=== PATIENT | male | born 1955 | race Two or more races ===

== ENCOUNTER 2019-06-21 17:46 | Emergency (ER) | payer MEDICAID ==
[~2019-06-21] VITALS: Ht 157.5 cm; Wt 64.9 kg
[2019-06-21 18:37] LABS: Urine Bacteria FEW /hpf (None Seen); Urine Blood 2+ /uL (Negative); Urine Specific Gravity 1.028 (1.001-1.035); Urine WBC 1050 /hpf (0 - 3); Urine WBC Clumps PRESENT /hpf (None Seen)
[2019-06-21 20:19] VITALS: BP 140/75
[2019-06-21] MEDS ORDERED: ACETAMINOPHEN/CODEINE#3 (300/30mg) TAB PO ONE (20:30)
[2019-06-21] MEDS ORDERED: PHENAZOPYRIDINE HCL 100 MG TAB PO ONE (20:30)
[2019-06-21] MEDS ORDERED: cefTRIAXone SOD 1,000 MG VL IM ONE (20:30)
== END 2019-06-21 20:55 | disposition home or self-care (01) ==
LOC: ER 17:46
DX: N39.0 Urinary tract infection, site not specified (principal); E11.9 Type 2 diabetes mellitus without complications
CPT/HCPCS: 81001; 96372; 99283; J0696

== ENCOUNTER 2020-04-15 17:48 | Inpatient (IN) | payer MEDICAID ==
[~2020-04-15] VITALS: Ht 165.1 cm; Wt 63.8 kg
[2020-04-15 19:22] LABS: Eosinophils # (auto) 0.1 10 ^3/uL (0-0.8); Lymphocytes # (auto) 1.2 10 ^3/uL (0.4-5.4); Monocytes # (auto) 0.3 10 ^3/uL (0-1.3); Nucleated Red Blood Cells % 0.2 %
[2020-04-15 19:24] LABS: Basophils # (auto) 0.1 10 ^3/uL (0-0.2); Basophils % (auto) 1.1 % (0.0-2.0); Hematocrit 50.7 % (41.0-53.0); Hemoglobin 17.4 g/dL (13.5-17.5); Mean Corpuscular Hemoglobin 34.9 pg (28.0-32.0); Mean Corpuscular Hgb Conc. 34.2 g/dL (32.0-36.0); Mean Corpuscular Volume 102.1 fL (80.0-100.0); Monocytes % (auto) 7.4 % (0.0-12.0); Neutrophils # (auto) 2.8 10 ^3/uL (1.6-8.6); Neutrophils % (auto) 62.5 % (37.0-80.0); Platelet Count (auto) 93 10^3/uL (140-450); Red Blood Cells 4.97 10^6/uL (4.5-5.90); White Blood Cell 4.5 10^3/uL (4.4-10.8)
[2020-04-15 19:41] LABS: INR 1.14 (0.9-1.15); Partial Thromboplastin Time 27.3 sec (23.0-31.2)
[2020-04-15 19:43] LABS: Alanine Aminotransferase 102 U/L (16-61); Albumin 3.3 g/dL (3.4-5.0); Anion Gap 7 (5-15); Aspartate Aminotransferase 121 U/L (15-37); Blood Urea Nitrogen 14 mg/dL (7-18); Calcium 8.8 mg/dL (8.5-10.1); Carbon Dioxide 24 mmol/L (21-32); Chloride 104 mmol/L (98-107); Glucose 139 mg/dL (74-106); Magnesium 2.4 mg/dL (1.6-2.6); Potassium 4.3 mmol/L (3.5-5.1); Sodium 135 mmol/L (136-145)
[2020-04-15 19:47] LABS: Alkaline Phosphatase 192 U/L (45-117); BUN/Creatinine Ratio 25.5; Bilirubin, Total 1.9 mg/dL (0.2-1.0); GFR African American 192 mL/min; GFR Non-African American 159 mL/min
[2020-04-15] MEDS ORDERED: ONDANSETRON HCL 4 MG/2 ML VIAL IV ONE (20:00)
[2020-04-15] MEDS ORDERED: GABA300C10 PO (20:52)
[2020-04-15] MEDS ORDERED: DOCUSATE SOD 100 MG CAP PO PRN (21:00)
[2020-04-15] MEDS ORDERED: HYDROcodone-ACET 5/325MG TAB PO PRN ×2 (21:00→21:15)
[2020-04-15] MEDS ORDERED: NITROGLYCERIN 0.4 MG SL TAB SL PRN (21:00)
[2020-04-15] MEDS ORDERED: MORPHINE SULF INJ 2 MG/ML SYRINGE 1ML IV PRN (21:00)
[2020-04-15] MEDS ORDERED: ONDANSETRON HCL 4 MG/2 ML VIAL IV PRN (21:00)
[2020-04-15] MEDS ORDERED: DEXTROSE (50%) 50ML SYRG IV ONE (21:00)
[2020-04-15] MEDS ORDERED: TEMAZEPAM 15 MG CAP PO PRN (21:00)
[2020-04-15] MEDS ORDERED: ACETAMINOPHEN 325 MG TAB PO PRN ×2 (21:00→21:15)
[2020-04-15] MEDS ORDERED: ACCU-CHEK COMFORT CURVE STRIP VI ONE (22:00)
[2020-04-15] MEDS ORDERED: InsuLIN REG 1unit/0.01ml Soln (100units/ml) SC ONE (22:00)
[2020-04-15] MEDS: FAMOTIDINE 20 MG TAB PO SCH (22:58)
[2020-04-15] MEDS: GABAPENTIN 300 MG CAP PO SCH (22:58)
[2020-04-16] VITALS (8 sets, daily range): BP systolic 102–123; BP diastolic 68–73
[2020-04-16 02:39] LABS: Urine Bacteria NONE SEEN /hpf (None Seen); Urine Blood Negative /uL (Negative); Urine Specific Gravity 1.042 (1.001-1.035); Urine WBC 1 /hpf (0 - 3)
[2020-04-16] MEDS: FAMOTIDINE 20 MG TAB PO SCH ×2 (09:41→22:50)
[2020-04-16] MEDS: ENOXAPARIN SOD 40 MG/0.4 ML SYRINGE SC SCH (09:41)
[2020-04-16] MEDS: GABAPENTIN 300 MG CAP PO SCH ×2 (13:59→22:50)
[2020-04-16] MEDS ORDERED: LORazepam 2MG/ML-1ML VIAL IV PRN (21:00)
[2020-04-16] MEDS ORDERED: THIAMINE 100mg/ml INJ (200mg/2ml VIAL) IV ONE (21:00)
[2020-04-17] VITALS (7 sets, daily range): BP systolic 99–117; BP diastolic 62–76
[2020-04-17] MEDS: GABAPENTIN 300 MG CAP PO SCH ×3 (06:23→22:36)
[2020-04-17] MEDS: FAMOTIDINE 20 MG TAB PO SCH ×2 (09:28→22:37)
[2020-04-17] MEDS: ENOXAPARIN SOD 40 MG/0.4 ML SYRINGE SC SCH (09:28)
[2020-04-17] MEDS: THIAMINE 100mg/ml INJ (200mg/2ml VIAL) IV SCH (09:28)
[2020-04-18] MEDS: GABAPENTIN 300 MG CAP PO SCH ×2 (05:53→14:06)
[2020-04-18 08:00] VITALS: BP 102/56
[2020-04-18 08:52] VITALS: BP 102/56
[2020-04-18] MEDS: ENOXAPARIN SOD 40 MG/0.4 ML SYRINGE SC SCH (10:00)
[2020-04-18] MEDS: FAMOTIDINE 20 MG TAB PO SCH (10:16)
[2020-04-18] MEDS: THIAMINE 100mg/ml INJ (200mg/2ml VIAL) IV SCH (10:16)
[2020-04-18 13:00] VITALS: BP 113/71
[2020-04-18 13:11] VITALS: BP 113/71
[2020-04-18 17:00] VITALS: BP 99/61
== END 2020-04-18 18:40 | disposition home health service (06) | DRG 111 ==
LOC: EDBD 17:48 → ER 17:48 → TELE 17:49 → TELE-WESTW 04-16 02:20
PROVIDERS: ADMIT Nurse Practitioner; ATTEND Internal Medicine
DX: R42 Dizziness and giddiness (principal); R55 Syncope and collapse; K74.69 Other cirrhosis of liver; D69.6 Thrombocytopenia, unspecified; E11.40 Type 2 diabetes mellitus with diabetic neuropathy, unspecified; F10.10 Alcohol abuse, uncomplicated; F17.210 Nicotine dependence, cigarettes, uncomplicated; I10 Essential (primary) hypertension; N40.0 Benign prostatic hyperplasia without lower urinary tract symptoms; Z79.82 Long term (current) use of aspirin; Z79.899 Other long term (current) drug therapy; Z82.49 Family history of ischemic heart disease and other diseases of the circulatory system; Z83.3 Family history of diabetes mellitus; W18.39XA Other fall on same level, initial encounter; Y93.89 Activity, other specified; Y92.89 Other specified places as the place of occurrence of the external cause; Y99.8 Other external cause status
CPT/HCPCS: 36415; 70450; 70551; 71045; 76705; 80053; 81001; 82962; 83735; 84484; 85025; 85610; 85730; 93005; 93306; 93886; 96374; G0378; J2405